=== PATIENT | male | born 1945 | race Caucasian/White ===

== ENCOUNTER 2024-12-02 13:45 | Inpatient (IN) | payer MEDICARE ==
[2024-12-02 14:51] VITALS: BMI 24.6
[2024-12-02] MEDS ORDERED: Senokot S 8.6-50 MG TAB PO PRN (16:59)
[2024-12-02] MEDS: metFORMIN XR 500 MG ER.TAB PO SCH (17:55)
[2024-12-02] MEDS: HYDROcodone/Acetaminophen 5/325 mg Tablet PO PRN (18:46)
[2024-12-02] MEDS: Lisinopril 10 MG TAB PO SCH (20:24)
[2024-12-02] MEDS: Melatonin 3 MG TAB PO SCH (20:24)
[2024-12-02] MEDS: Gabapentin 300 MG CAP PO SCH (20:25)
[2024-12-02] MEDS: Proctozone-HC 30 GM TUBE TOP SCH (20:26)
[2024-12-03 04:55] LABS: #Basophils 0.1 thou/uL (0.0-0.2); #Eosinophils 0.2 thou/uL (0.0-0.7); #Lymphocytes 1.1 thou/uL (1.20-3.40); #Monocytes 0.6 thou/uL (0.11-0.59); #Neutrophils 4.5 thou/uL (1.40-6.50); %Basophils 0.9 % (0.0-1.0); %Eosinophils 2.4 % (0.0-10.0); %Lymphocytes 17.7 % (21.0-51.0); %Monocytes 9.2 % (0.0-10.0); %Neutrophils 69.8 % (42.0-75.0); Hematocrit 35.5 % (42.0-52.0); Hemoglobin 12.5 g/dL (14.0-18.0); Mean Corpuscular Hemoglobin 32.4 pg (27.0-31.0); Mean Corpuscular Volume 91.9 fl (78.0-98.0); Platelet Count 227 10x3/uL (130-400); Red Blood Cell (RBC) Count 3.86 mill/uL (4.70-6.10); White Blood Cell (WBC) Count 6.4 10x3/uL (4.8-10.8)
[2024-12-03 05:14] LABS: Anion Gap 13 mmol/L (10-20); BUN (Urea Nitrogen) 11 mg/dL (8.4-25.7); Calc. Creatinine Clearance 119 mL/min (70-130); Calcium 9.0 mg/dL (7.8-10.44); Carbon Dioxide 28 mmol/L (23-31); Chloride 104 mmol/L (98-107); Glucose 100 mg/dL (83-110); Potassium 3.5 mmol/L (3.5-5.1); Sodium 141 mmol/L (136-145)
[2024-12-03] MEDS: Aspirin 81 mg Enteric Coated Tablet PO SCH (08:55)
[2024-12-03] MEDS: Pantoprazole 40 MG DR.TAB PO SCH (08:56)
[2024-12-03] MEDS ORDERED: Non-Formulary Item 1 EACH (Fluticasone Propionate [Fluticasone Propionate] 50 MCG Blst.W. IH SCH (09:00)
[2024-12-03] MEDS: Furosemide 20 MG TAB PO SCH (09:07)
[2024-12-03] MEDS: Acetaminophen 325 MG TAB PO PRN (12:16)
[2024-12-05] MEDS: Acetaminophen 325 MG TAB PO PRN (13:06)
[2024-12-05 21:23] VITALS: BMI 24.6
[2024-12-12 09:52] LABS: Hematocrit 41.8 % (42.0-52.0); Hemoglobin 14.2 g/dL (14.0-18.0)
[2024-12-14] MEDS: Albuterol 200 PUFF (6.7GM INHALER) INH PRN (16:55)
[2024-12-21] MEDS: Aspirin 81 mg Enteric Coated Tablet PO SCH (08:29)
[2024-12-21 18:45] LABS: ALT (SGPT) 10 U/L (Less than 45); AST (SGOT) 14 U/L (11-34); Albumin 3.2 g/dL (3.1-4.5); Alkaline Phosphatase 115 U/L (40-110); Anion Gap 14 mmol/L (10-20); BUN (Urea Nitrogen) 7 mg/dL (8.4-25.7); Bilirubin, Total 0.9 mg/dL (0.3-1.2); Calc. Creatinine Clearance 119 mL/min (70-130); Calcium 8.5 mg/dL (7.8-10.44); Carbon Dioxide 27 mmol/L (23-31); Chloride 103 mmol/L (98-107); Globulin 3.7 g/dL (2.4-3.5); Glucose 117 mg/dL (83-110); Potassium 2.8 mmol/L (3.5-5.1); Sodium 141 mmol/L (136-145)
[2024-12-22 05:23] LABS: #Basophils 0.0 thou/uL (0.0-0.2); #Eosinophils 0.2 thou/uL (0.0-0.7); #Lymphocytes 1.5 thou/uL (1.20-3.40); #Monocytes 0.5 thou/uL (0.11-0.59); #Neutrophils 2.6 thou/uL (1.40-6.50); %Basophils 0.9 % (0.0-1.0); %Eosinophils 4.8 % (0.0-10.0); %Lymphocytes 31.1 % (21.0-51.0); %Monocytes 9.8 % (0.0-10.0); %Neutrophils 53.5 % (42.0-75.0); Hematocrit 38.1 % (42.0-52.0); Hemoglobin 13.2 g/dL (14.0-18.0); Mean Corpuscular Hemoglobin 31.0 pg (27.0-31.0); Mean Corpuscular Volume 89.6 fl (78.0-98.0); Platelet Count 167 10x3/uL (130-400); Red Blood Cell (RBC) Count 4.26 mill/uL (4.70-6.10); White Blood Cell (WBC) Count 4.9 10x3/uL (4.8-10.8)
[2024-12-25 00:08] LABS: Total PSA Less than 0.1 ng/mL (0.0-4.0)
[2024-12-25 05:25] LABS: ALT (SGPT) 10 U/L (Less than 45); AST (SGOT) 17 U/L (11-34); Albumin 3.2 g/dL (3.1-4.5); Alkaline Phosphatase 107 U/L (40-110); Anion Gap 17 mmol/L (10-20); BUN (Urea Nitrogen) 7 mg/dL (8.4-25.7); Bilirubin, Total 1.1 mg/dL (0.3-1.2); Calc. Creatinine Clearance 101 mL/min (70-130); Calcium 8.7 mg/dL (7.8-10.44); Carbon Dioxide 27 mmol/L (23-31); Chloride 104 mmol/L (98-107); Globulin 3.7 g/dL (2.4-3.5); Glucose 97 mg/dL (83-110); Potassium 3.5 mmol/L (3.5-5.1); Sodium 144 mmol/L (136-145)
[2025-01-02 06:00] VITALS: TEMP 98.4
[2025-01-02 08:52] VITALS: BP 135/85
== END 2025-01-02 14:19 | disposition home or self-care (01) | DRG 945 ==
LOC: BURMED 13:45
PROVIDERS: ADMIT Family Medicine; ATTEND Nurse Practitioner
PROC: F07Z9ZZ Gait Training/Functional Ambulation Treatment (ICD-10-PCS; principal; 2024-12-02)
PROC: 2W35X3Z Immobilization of Back using Brace (ICD-10-PCS; 2024-12-02)
DX: R53.81 Other malaise (principal); I50.1 Left ventricular failure, unspecified; I11.0 Hypertensive heart disease with heart failure; E11.42 Type 2 diabetes mellitus with diabetic polyneuropathy; E78.5 Hyperlipidemia, unspecified; I25.10 Atherosclerotic heart disease of native coronary artery without angina pectoris; E87.8 Other disorders of electrolyte and fluid balance, not elsewhere classified; S32.019D Unspecified fracture of first lumbar vertebra, subsequent encounter for fracture with routine healing; S22.081D Stable burst fracture of T11-T12 vertebra, subsequent encounter for fracture with routine healing; Z95.1 Presence of aortocoronary bypass graft; Z79.899 Other long term (current) drug therapy; Z92.3 Personal history of irradiation; Z93.3 Colostomy status; Z85.46 Personal history of malignant neoplasm of prostate
CPT/HCPCS: 36415; 36416; 80048; 80053; 84153; 84154; 85014; 85018; 85025